=== PATIENT | male | born 1955 | race Caucasian/White ===

== ENCOUNTER 2023-06-19 08:30 | Outpatient (RCR) | payer MEDICARE, BC, SELFPAY | END 2023-10-17 23:59 | disposition home or self-care (01) | PROVIDERS: PCP Surgery; Visit Provider Surgery | DX: M25.521 Pain in right elbow (principal); Z51.89 Encounter for other specified aftercare | CPT/HCPCS: 97035; 97110; 97140; 97165; X5282 ==

== ENCOUNTER 2024-03-31 06:16 | Day surgery (SDC) | payer MEDICARE, BC, SELFPAY ==
[2024-03-31 06:33] VITALS: BP 130/90; PULSE 78; RESP 16; TEMP 36.6; O2SAT 97; BMI 27.3
[2024-03-31] MEDS: 0.9 % SODIUM CHLORIDE 500 ML 500 ML 100 ML IV (06:38)
[2024-03-31] MEDS: SODIUM CHLORIDE 0.9 % (FLUSH) 10 ML SYRINGE IVF (06:57)
--- NOTE | 2024-03-31 07:11 | W.PM.H&PU ---
History & Physical Update History & Physical Update H&P Reviewed and patient assessed: No changes noted
--- NOTE | 2024-03-31 07:14 | P.GSOP_ITS ---
Operative Note Date of procedure: 03/31/24 Pre-op diagnosis: 1. 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 Post-op diagnosis: Same Type of Procedure: 1. Wide local excision of right upper back melanoma with complex incisional closure 17 cm. Indications: 68-year-old male presented to clinic for evaluation of right upper back melanoma. On his annual physical exam he was noted to have an enlarging changing mole in the right upper back. Biopsy of the nevus showed melanoma 0.5 mm deep with no ulceration. This was only a biopsy. Patient denied personal history of melanoma but his dad and his brother had melanoma. On clinical exam in the right upper back over the scapular he had a vertically oriented elongated irregular dark nevus with a healing lateral scab. This was measuring approximately 1.1 x 0.7 cm. Given patient's history and his pathology results, excision of right upper back melanoma with at least 1 cm margins was recomme nded. The procedure was discussed in detail. The risks associated procedure including infection, bleeding, and the need for additional procedures were all discussed with the patient, and he agreed to proceed. Procedure Description: After discussing the risks and benefits of the procedure, the patient signed informed consent.? The operative site was marked and the patient was brought to the operating room and placed on the operating table in prone position with all pressure points padded.?? The patient was then sedated by anesthesia.?? The oper ative site was then prepped and draped in the usual sterile fashion.? A time-out was then performed. The right upper back melanoma was identified and was measuring 0.9 x 1 cm. Given the depth of 0.5 mm on biopsy, 1 cm lateral and medial margins were marked with a marking pen. The elliptical vertical skin incision was then marked with a marking pen. Local anesthetic was injected at the surgical site. A vertical elliptical skin incision was made with a scalpel. The dermis and subcutaneous fat were divided with cautery and this dissection was carried down to the muscle fascia. The ellipse of skin containing the melanoma was then excised with cautery. It was marked with the single stitch superior and double lateral. It was measuring 3 x 17 cm. This was sent to pathology. Hemostasis achieved with cautery. I then developed skin flaps medially and laterally with cautery. When the skin was fairly mobile, I proceeded with incisional closure. The incision was closed in layers with interrupted 2-0 and 3-0 Vicryl sutures. The length of the incision was 17 cm. The skin was closed with a running 4-0 Monocryl stitch. Steri-Strips and sterile pressure dressings were placed over the incision. All counts were correct at the end of the case. The patient was then woken and transported to the recovery area in stable condition. ? The patient tolerated the procedure well. Findings: Melanoma excised and incision was closed with no tension. Anesthesia: MAC and local Surgeon: Jonnathan German MD Estimated blood loss (mL): 5 Additional Specimen Information: 1. Right upper back melanoma. Condition: stable Disposition: same day Primary Cutaneous Melanoma Operation Performed with Curative Intent: Yes Original Breslow thickness of the lesion: Depth in mm 0.5 Clinical margin width (measured from the edge of the lesion or the prior exci kinjal scar): 1 cm Depth of Excision: Full thickness skin/subcutaneous tissue down to fascia (melanoma)
[2024-03-31] MEDS: CEFAZOLIN 2 GM INJ IVP (07:37)
[2024-03-31] MEDS: BUPIVACAINE 0.25% 30 ML INJECTION (07:39)
[2024-03-31] MEDS: LIDOCAINE 1%-EPI 1:100,000 20 ML INFILTRATI (07:39)
--- NOTE | 2024-03-31 08:13 | W.ANESCHARGE ---
Anesthesia Charges Start Date/Time Anesthesia Start Date: 03/31/24 Anesthesia Start Time: 07:23 Stop Date/Time Anesthesia Stop Date: 03/31/24 Anesthesia Stop Time: 08:14
[2024-03-31 08:15] VITALS: BP 107/66; PULSE 63; RESP 16; TEMP 36.4; O2SAT 92
[2024-03-31 08:30] VITALS: BP 99/81; PULSE 60; RESP 16; O2SAT 94
[2024-03-31 08:45] VITALS: BP 112/76; PULSE 57; RESP 16; O2SAT 95
[2024-03-31 09:00] VITALS: BP 106/75; PULSE 70; RESP 16; O2SAT 95
== END 2024-03-31 09:10 | disposition home or self-care (01) ==
PROVIDERS: PCP Surgery; Visit Provider Surgery
PROC: (CPT 11606; principal; 2024-03-31 07:30)
DX: C43.59 Malignant melanoma of other part of trunk (principal)
CPT/HCPCS: 11606; 12035; 00300; 88305; J0665; J0690; J1100; J2405; J2704; J3010; J7030

== ENCOUNTER 2024-07-29 07:06 | Outpatient (CLI) | payer MEDICARE, BC, SELFPAY ==
--- NOTE | 2024-07-29 07:15 | MR_ITS ---
EXAM: MRI of the LEFT KNEE, without contrast CLINICAL INFORMATION: Male, 69 years old, with knee pain. INDICATION: Evaluate for internal derangement PRIOR SURGERY: None reported. PLAIN FILMS: Radiographs 11/21/2023. COMPARISONS: No prior MRIs available. TECHNICAL INFORMATION: Using a 1.5T MR scanner and a localizing surface coil: sagittals: PD, PDFS coronals: PD, T2FS axials: PD, PDFS SEDATION: None CONTRAST: None FINDINGS: Knee joint: Effusion: Small sized left knee effusion. Popliteal cyst: None. Loose bodies: None. Subcutaneous and extra-articular soft tissues: Unremarkable. Ligaments: ACL: Intact ACL anteromedial and posterolateral bundles, without sprain or tear. PCL: Intact PCL, without acute or chronic injury. MCL: Thickening of the proximal superficial MCL suggests residua of chronic incomplete sprain injury. LCL: Intact LCL, without injury. Posterolateral corner: No posterolateral corner soft tissue injury. Popliteus, biceps femoris, iliotibial band, popliteofibular ligament and lateral gastrocnemius are intact. Posteromedial corner: No posteromedial corner soft tissue injury. Semimembranosus, pes anserine tendons and posterior oblique ligament are without injury, tendinopathy or bursitis. Extensor mechanism: Patellar tendon: Intact, without tendinopathy. Quadriceps tendon: Intact, without tendinopathy. Retinacula: Medial and lateral retinacula are intact. Fat pads: Unremarkable infrapatellar Hoffa's, quadriceps and prefemoral fat pads. Medial compartment: Medial meniscus: Medial meniscus is abnormal in appearance with complete or essentially complete radial tearing at the level of the posterior root measuring 1.0 cm in length (sagittal series 6 images 11-14). Superimposed apical free edge and undersurface tearing at the level body measuring 5 mm with intrasubstance degeneration. Tearing results in 5 mm peripheral meniscal extrusion. 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 Additional small region of grade III/IV chondromalacia along the posterior weightbearing surface measuring 8 mm, also with underlying mild marrow edema. Medial tibial plateau: No chondromalacia or osteochondral abnormality. Lateral compartment: Lateral meniscus: No articular surface, meniscosynovial junction or root tear. No displacement, extrusion or parameniscal cyst. Lateral femoral condyle: No chondromalacia or osteochondral abnormality. Lateral tibial plateau: No chondromalacia or osteochondral abnormality. Patellofemoral joint: Patella: Small region of full-thickness fissuring involving the mid medial patellar facet measuring 1.0 cm (axial series 4 image 9). Trochlea: No chondromalacia or osteochondral abnormality. Proximal tibiofibular joint: No evidence for joint degeneration. There is a ganglion which extends inferiorly from the level of the joint measuring approximately 1.9 x 1.6 x 1.0 cm. Bones: No stress/occult fractures or other marrow edema/pathology. IMPRESSION: 1. Complete or essentially complete radial tearing of the posterior root of the medial meniscus with resulting 5 mm peripheral meniscal extrusion. 2. 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 3. Small region of full-thickness fissuring of the mid medial patellar facet. 4. 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 5. No lateral meniscus tear. Lateral compartment articular cartilage is intact. 6. Small knee joint effusion. KME Electronically signed on 07/30/2024 8:49:00 AM by Kim Adler M.D.
== END 2024-07-29 07:07 | disposition home or self-care (01) ==
LOC: MRI 07:07
PROVIDERS: PCP Surgery; Visit Provider Orthopaedic Surgery Sports Medicine
DX: M25.562 Pain in left knee (principal); S83.222A Peripheral tear of medial meniscus, current injury, left knee, initial encounter; M94.262 Chondromalacia, left knee; S83.412A Sprain of medial collateral ligament of left knee, initial encounter; M25.462 Effusion, left knee; S89.92XA Unspecified injury of left lower leg, initial encounter; M23.92 Unspecified internal derangement of left knee
CPT/HCPCS: 73721